=== PATIENT | female | born 1985 | race Caucasian/White ===

== ENCOUNTER 2019-07-02 08:46 | Emergency (ER) | payer OTHER, BC ==
[~2019-07-02] VITALS: Ht 160 cm; Wt 104.3 kg
[2019-07-02 08:54] VITALS: BP 153/81
--- NOTE | 2019-07-02 08:57 | NUR ---
SEEN AND EXAMINED BY DR. MATHEW
--- NOTE | 2019-07-02 09:07 | NUR ---
Patient discharged to home in stable condition. Written and verbal after care instructions given. Patient verbalizes understanding of instruction.
== END 2019-07-02 09:14 | disposition home or self-care (01) ==
LOC: ER 08:47
DX: S09.8XXA Other specified injuries of head, initial encounter (principal); M54.2 Cervicalgia; M25.512 Pain in left shoulder; E11.9 Type 2 diabetes mellitus without complications; V49.49XA Driver injured in collision with other motor vehicles in traffic accident, initial encounter; Y93.89 Activity, other specified; Y92.488 Other paved roadways as the place of occurrence of the external cause; Y99.8 Other external cause status